=== PATIENT | male | born 1985 | race Caucasian/White ===

== ENCOUNTER 2019-07-18 11:25 | Emergency (ER) | payer BC ==
[~2019-07-18] VITALS: Ht 180.3 cm; Wt 110.7 kg
[2019-07-18 12:02] VITALS: BP 140/89
--- NOTE | 2019-07-18 12:02 | NUR ---
Patient discharged to home in stable conditon. Written and verbal after care instructions given. Patient verbalizes understanding of instructions.
== END 2019-07-18 12:02 | disposition home or self-care (01) ==
LOC: ER 11:35
DX: J06.9 Acute upper respiratory infection, unspecified (principal)
CPT/HCPCS: A4663

== ENCOUNTER 2024-11-21 15:24 | Emergency (ER) | payer BC ==
[~2024-11-21] VITALS: Ht 177.8 cm; Wt 131.5 kg
[2024-11-21] MEDS ORDERED: NYST15PO4 TP (17:56)
[2024-11-21] MEDS ORDERED: CEPH500C2 PO (17:56)
[2024-11-21 19:36] VITALS: BP 127/79; O2SAT 98
== END 2024-11-21 19:14 | disposition home or self-care (01) ==
LOC: ER 15:24
DX: B37.2 Candidiasis of skin and nail (principal); M79.604 Pain in right leg; M79.605 Pain in left leg; Z87.09 Personal history of other diseases of the respiratory system; Z60.2 Problems related to living alone
CPT/HCPCS: A4606; A4663